=== PATIENT | male | born 2000 | race Caucasian/White ===

== ENCOUNTER → 2019-06-07 | Outpatient (CLI) | payer OTHER | LOC: BHSO 10:50 | DX: F31.81 Bipolar II disorder (principal) ==

== ENCOUNTER → 2019-07-05 | Outpatient (CLI) | payer OTHER | LOC: BHSO 10:17 | DX: F31.81 Bipolar II disorder (principal) | CPT/HCPCS: G0463 ==

== ENCOUNTER → 2019-09-07 | Outpatient (CLI) | payer OTHER | LOC: BHSO 14:13 | DX: F31.81 Bipolar II disorder (principal) | CPT/HCPCS: G0463 ==

== ENCOUNTER → 2019-11-09 | Outpatient (CLI) | payer OTHER | LOC: BHSO 14:20 | DX: F31.81 Bipolar II disorder (principal) | CPT/HCPCS: G0463 ==

== ENCOUNTER → 2020-01-16 | Outpatient (CLI) | payer OTHER | LOC: BHSO 09:17 | DX: F31.81 Bipolar II disorder (principal) | CPT/HCPCS: G0463 ==

== ENCOUNTER → 2020-05-24 | Outpatient (CLI) | payer OTHER | LOC: BHSO 09:42 | DX: F31.81 Bipolar II disorder (principal) | CPT/HCPCS: G0463 ==